=== PATIENT | female | born 1950 | race American Indian/Alaskan Native ===

== ENCOUNTER 2016-12-10 04:39 | Emergency (ER) | payer MEDICARE, OTHER ==
[2016-12-10 04:39] VITALS: BMI 35.9
[2016-12-10] MEDS ORDERED: Sodium Chloride 0.9% 1,000 ML IV ONE (05:07)
--- NOTE | 2016-12-10 05:15 | C.PDOC ---
History Of Present Illness Patient is a 66 year old female who presents to the ER with a complaint of feeling dizzy, associated with nausea and vomiting since yesterday. Patient describes it as a room spinning sensation and feeling like shes going to fall down. Patient has not taken any medication for her symptoms except for her HTN and DM medications. Denies headache, diarrhea, tinnitus, chest pain or SOB. Time Seen by Provider: 12/10/16 04:55 Chief Complaint (Nursing): Dizziness/Lightheaded History Per: Patient History/Exam Limitations: no limitations Onset/Duration Of Symptoms: Days (Since yesterday) Current Symptoms Are (Timing): Still Present Activity At Onset Of Symptoms: Other (Not known) Fall Associated With With Symptoms: No Recent travel outside of the [place]: No - Symptoms Of CVA Associated Symptoms: denies: Impaired Speech, Seizure Activity, New Vision Deficit(Left), New Vision Deficit(Right), Decreased Ability To Walk, New Confusion, Other Recent Aspirin Use: Unknown Current Coumadin Use?: Unknown Recent Head Trauma: No Past Medical History Reviewed: Historical Data, Nursing Documentation, Vital Signs Vital Signs: Last Vital Signs Temp 98 F 12/10/16 04:46 Pulse 84 12/10/16 04:46 Resp 14 12/10/16 04:46 BP 173/89 H 12/10/16 04:46 Pulse Ox 98 12/10/16 06:20 - Medical History PMH: Diabetes, Hyperlipidemia Surgical History: No Surg Hx Family History: States: Unknown Family Hx - Social History Hx Tobacco Use: No Hx Alcohol Use: No Hx Substance Use: No - Immunization History Hx Tetanus Toxoid Vaccination: Yes Hx Influenza Vaccination: No Hx Pneumococcal Vaccination: No Review Of Systems Cardiovascular: Negative for: Chest Pain Respiratory: Negative for: Shortness of Breath Gastrointestinal: Negative for: Diarrhea Neurological: Positive for: Dizziness. Negative for: Headache, Other (Tinnitus) Physical Exam - Physical Exam Appears: Non-toxic, No Acute Distress Skin: Normal Color, Warm, Dry Head: Atraumatic, Normacephalic Oral Mucosa: Moist Chest: Symmetrical, No Tenderness Cardiovascular: Rhythm Regular, No Murmur Respiratory: Normal Breath Sounds, No Rales, No Rhonchi, No Wheezing Gastrointestinal/Abdominal: Soft, No Tenderness Neurological/Psych: Oriented x3, Normal Speech, Normal Cognition ED Course And Treatment - Laboratory Results Result Diagrams: 12/10/16 05:58 12/10/16 05:58 ECG: Interpreted By Me ECG Rhythm: Sinus Rhythm, Nonspecific Changes Rate From EC O2 Sat by Pulse Oximetry: 98 (Room air) Pulse Ox Interpretation: Normal - Radiology CXR: Interpreted by Me CXR Interpretation: Yes: No Acute Disease Medical Decision Making Medical Decision Making: Impression: 66 year old female with dizziness Plan: * EKG * Blood work * CXR * Urinalysis * Ativan * Zofran * IV fluids Post meds feeling better no vomiting in the ED Labs glu up other peña unremarkable, EKG normal Disposition - Disposition Disposition: HOME/ ROUTINE Disposition Time: 06:46 Condition: FAIR - Clinical Impression Clinical Impression: Dizziness - Scribe Statement The provider has reviewed the documentation as recorded by the Scribtoshia Walter All medical record entries made by the Scribe were at my direction and personally dictated by me. I have reviewed the chart and agree that the record accurately reflects my personal performance of the history, physical exam, medical decision making, and the department course for this patient. I have also personally directed, reviewed, and agree with the discharge instructions and disposition. Physician Patient Turnover Patient Signed Over To: Marian Hart Handoff Comments: Pending head CT, likely able to dc if ct normal
[2016-12-10] MEDS ORDERED: Sodium Chloride 0.9% 1,000 ML ONE (05:19)
[2016-12-10 06:07] LABS: BASO % 0.2 % (0.0-2.0); EOS % 0.4 % (0.0-4.0); HEMATOCRIT 38.2 % (34.0-47.0); LYMPH # 1.6 K/uL (1.0-4.3); LYMPH % 17.5 % (20.0-40.0); MEAN CELL VOLUME 71.2 fL (81.0-99.0); MEAN CORPUSCULAR HEMOGLOBIN 21.9 pg (27.0-31.0); MEAN CORPUSCULAR HGB CONC 30.8 g/dL (33.0-37.0); MEAN PLATELET VOLUME 8.9 fL (7.2-11.7); MONO # 0.6 K/uL (0.0-0.8); WHITE BLOOD COUNT 9.1 K/uL (4.8-10.8)
[2016-12-10 06:08] LABS: CHLORIDE 105 mmol/L (98-107)
[2016-12-10 06:09] LABS: POTASSIUM 4.2 mmol/L (3.6-5.2); SODIUM 142 mmol/L (132-148)
[2016-12-10 06:11] LABS: ALB/GLOB RATIO 1.2 (1.0-2.1); ALKALINE PHOSPHATASE 114 U/L (38-126); ALT/SGPT 18 U/L (9-52); AST/SGOT 13 U/L (14-36); BILIRUBIN,TOTAL 1.2 mg/dL (0.2-1.3); BLOOD UREA NITROGEN 8 mg/dL (7-17); CARBON DIOXIDE 28 mmol/L (22-30); GFR AFRICAN-AMERICAN > 60; GLUCOSE,RANDOM 274 mg/dL (65-105); TOTAL PROTEIN 7.2 g/dL (6.3-8.3)
[2016-12-10 06:12] LABS: CALCIUM 8.6 mg/dl (8.6-10.4)
[2016-12-10 07:22] VITALS: RESP 18
--- NOTE | 2016-12-10 08:54 | CT ---
PROCEDURE: CT HEAD WITHOUT CONTRAST. HISTORY: dizzness COMPARISON: None available. TECHNIQUE: Axial computed tomography images were obtained through the head/brain without intravenous contrast. Radiation dose: Total exam DLP = 883 mGy-cm. This CT exam was performed using one or more of the following dose reduction techniques: Automated exposure control, adjustment of the mA and/or kV according to patient size, and/or use of iterative reconstruction technique. FINDINGS: HEMORRHAGE: No intracranial hemorrhage. BRAIN: No mass effect or edema. No atrophy or chronic microvascular ischemic changes. Prominent bilateral basal ganglia calcifications. Punctate calcifications within the right cerebellum which may represent granulomatous change. VENTRICLES: Unremarkable. No hydrocephalus. CALVARIUM: Unremarkable. PARANASAL SINUSES: Unremarkable as visualized. No significant inflammatory changes. MASTOID AIR CELLS: Unremarkable as visualized. No inflammatory changes. OTHER FINDINGS: None. IMPRESSION: No acute intracranial abnormality. If focal neurologic deficit persists, consider MRI.
--- NOTE | 2016-12-10 08:58 | RAD ---
PROCEDURE: CHEST RADIOGRAPH, 1 VIEW HISTORY: Abdominal pain COMPARISON: None available. FINDINGS: LUNGS: Biapical pleural thickening with upper lobe granulomatous changes. Mild venous congestion. PLEURA: No pneumothorax or pleural fluid seen. CARDIOVASCULAR: Normal. OSSEOUS STRUCTURES: Degenerative changes in the spine and shoulders. VISUALIZED UPPER ABDOMEN: Normal. OTHER FINDINGS: None. IMPRESSION: Mild venous congestion.
[2016-12-10 09:15] LABS: RBC URINE 2 /hpf (0-3); URINE BACTERIA FEW (<OCC); URINE BILIRUBIN NEGATIVE (NEGATIVE); URINE BLOOD NEGATIVE (NEGATIVE); URINE COLOR Yellow (YELLOW); URINE GLUCOSE (UA) 3+ mg/dL (Normal); URINE KETONE 1+ mg/dL (NEGATIVE); URINE LEUKOCYTE ESTERASE NEG Leu/uL (Negative); URINE PROTEIN 2+ mg/dL (NEGATIVE); WBC URINE 4 /hpf (0-5)
[2016-12-10 09:24] VITALS: BP 138/74; PULSE 73; TEMP 98.2; O2SAT 99
--- NOTE | 2016-12-11 18:32 | CARD ---
APPROVED REPORT EKG Measurement Heart [id number] <Conclusion> Normal sinus rhythm Minimal voltage criteria for LVH, may be normal variant Nonspecific T wave abnormality Abnormal ECG
== END 2016-12-10 11:00 | disposition home or self-care (01) ==
LOC: C.ER 04:39
DX: H81.399 Other peripheral vertigo, unspecified ear (principal)
CPT/HCPCS: 70450; 71010; 80053; 81001; 84484; 85025; 93005; 96374; 99285; J2405; J7040